=== PATIENT | female | born 1940 | race Caucasian/White ===

== ENCOUNTER 2018-03-02 17:46 | Inpatient (IN) | payer OTHER ==
[~2018-03-02] VITALS: Ht 170.2 cm; Wt 127.9 kg
--- NOTE | ~2018-03-02 | EKG ---
[place] [address] [address] [facility] [place] [address] ELECTROCARDIOGRAM REPORT Name: MANUELA BAH Room #: 404-P ADM IN .R.#: [id number] Admission: 03/02/18 Attend Phys: Lm Motley MD Discharge: Date of : 44 Report #: [id number] THIS REPORT FOR: //name// [facility] ED Test Date: 2018-03-02 Test Time: 19:08:17 Pat Name: MANUELA BIRCH Department: Room: Gender: F Palliative Care Specialist: yanci saldivar : 1940 Requested By: Tres Lal Order Number: [id number] MD: Edson Pulliam Measurements Intervals [place] Rate: 75 P: 0 DE: 53 QRS: 118 QRSD: 165 T: -45 QT: 508 QTc: 568 Interpretive Statements Atrial-ventricular dual-paced complexes No further analysis attempted due to paced rhythm No previous ECG available for comparison Electronically Signed On 03-03-2018 8:34:46 CDT by Edson Pulliam [email or web address] <ELECTRONICALLY SIGNED> By: Edson Pulliam MD, [facility] 03/03/18 0834 07 07 Edson Pulliam MD, [facility] /EPI
[2018-03-02 17:48] VITALS: BP 118/44
[2018-03-02] MEDS ORDERED: PROAIR RESPICL90 MCG (18:08)
[2018-03-02] MEDS ORDERED: XANAX1 MG (18:09)
[2018-03-02] MEDS ORDERED: AMIODARONE HCL100 MG PO (18:09)
[2018-03-02] MEDS ORDERED: ASPIR 8181 MG PO (18:10)
[2018-03-02] MEDS ORDERED: ELIQUIS5 MG PO (18:10)
[2018-03-02] MEDS ORDERED: EQUALACTIN PO (18:11)
[2018-03-02] MEDS ORDERED: LEXAPRO20 MG PO (18:12)
[2018-03-02] MEDS ORDERED: CARVEDILOL12.5 MG PO (18:12)
[2018-03-02] MEDS ORDERED: FLEXERIL PO (18:13)
[2018-03-02] MEDS ORDERED: FLONASE 0.05%50 MCG NASAL (18:13)
[2018-03-02 18:48] LABS: ABSOLUTE NEUTROPHILS 8.1 thou/uL (1.4-8.2); BASOPHILS 1.2 % (0.0-2.0); EOSINOPHILS 1.5 % (0.0-3.0); HEMATOCRIT 33.2 % (37.0-47.0); HEMOGLOBIN 10.8 gm/dL (12.0-15.0); MCH 27.8 pg (26.0-34.0); MCHC 32.7 g/dL (28.0-37.0); MONOCYTES 8.6 % (1.0-8.0); PLATELET COUNT 148 thou/uL (150-400); POLYS 78.7 % (36.0-66.0); RBC 3.91 mil/uL (4.20-5.00); RDW 15.6 % (10.5-14.5); WBC 10.3 thou/uL (4.0-11.0)
[2018-03-02] MEDS ORDERED: GLYBURIDE 2.52.5 M1 PO (18:50)
[2018-03-02] MEDS ORDERED: GLYBURIDE 2.52.5 MG PO (18:51)
[2018-03-02] MEDS ORDERED: SYNTHROID75 MCG PO (18:52)
[2018-03-02] MEDS ORDERED: LIPITOR10 MG PO (18:52)
[2018-03-02] MEDS ORDERED: LISINOPRIL2.5 M1 PO (18:53)
[2018-03-02] MEDS ORDERED: MAG GLYCINATE100 MG PO (18:53)
[2018-03-02] MEDS ORDERED: OMEPRAZOLE 20 M20 M1 PO (18:54)
[2018-03-02] MEDS ORDERED: METOLAZONE 2.52.5 M1 PO (18:54)
[2018-03-02 18:55] LABS: CREATININE 2.1 mg/dL (0.6-1.0); POTASSIUM 3.8 mmol/L (3.5-5.1)
[2018-03-02] MEDS ORDERED: K-DUR 20 MEQ T20 MEQ PO (18:55)
[2018-03-02] MEDS ORDERED: SENNA8.6 MG PO (18:56)
[2018-03-02] MEDS ORDERED: SLOW RELEASE I143 MG PO (18:57)
[2018-03-02] MEDS ORDERED: DEMADEX20 MG PO (18:57)
[2018-03-02] MEDS ORDERED: VITAMIN D3400 UNIT PO (18:58)
[2018-03-02] MEDS ORDERED: FLOMAX0.4 MG PO (18:58)
[2018-03-02] MEDS ORDERED: FLOVENT HFA 4444 MCG INH (18:59)
[2018-03-02] MEDS ORDERED: ATROVENT HFA14 GM INH (18:59)
[2018-03-02 19:05] LABS: APTT 24.4 Seconds (24.5-32.8); PROTIME 10.7 Seconds (9.3-11.4)
[2018-03-02 19:23] VITALS: BP 133/59
[2018-03-03] VITALS: BP 139/61
[2018-03-03 00:13] VITALS: BP 141/58
[2018-03-03 04:00] VITALS: BP 135/68
[2018-03-03 06:58] LABS: HEMATOCRIT 31.5 % (37.0-47.0); HEMOGLOBIN 10.3 gm/dL (12.0-15.0); MCH 27.6 pg (26.0-34.0); MCHC 32.7 g/dL (28.0-37.0); MCV 84.4 fL (80.0-100.0); RBC 3.73 mil/uL (4.20-5.00); RDW 15.2 % (10.5-14.5)
[2018-03-03 07:05] LABS: CALCIUM 8.7 mg/dL (8.5-10.1); CREATININE 1.7 mg/dL (0.6-1.0); POTASSIUM 3.8 mmol/L (3.5-5.1)
[2018-03-03 07:09] VITALS: BP 134/68
[2018-03-03 07:10] LABS: PROTIME 10.7 Seconds (9.3-11.4)
[2018-03-03 11:39] LABS: TSH 1.959 uIU/mL (0.358-3.740)
== END 2018-03-03 12:08 | disposition short-term general hospital (02) | DRG 535 ==
LOC: ER 17:46 → 4N 19:20 → EROBS 19:20 → 4N 20:30
PROVIDERS: Internal Medicine Geriatric Medicine; Nurse Practitioner Family; Physician Assistant
DX: S72.141A Displaced intertrochanteric fracture of right femur, initial encounter for closed fracture (principal); N17.0 Acute kidney failure with tubular necrosis; I13.0 Hypertensive heart and chronic kidney disease with heart failure and stage 1 through stage 4 chronic kidney disease, or unspecified chronic kidney disease; F17.210 Nicotine dependence, cigarettes, uncomplicated; N18.9 Chronic kidney disease, unspecified; I50.9 Heart failure, unspecified; E78.5 Hyperlipidemia, unspecified; I48.91 Unspecified atrial fibrillation; I35.0 Nonrheumatic aortic (valve) stenosis; E03.9 Hypothyroidism, unspecified; E11.22 Type 2 diabetes mellitus with diabetic chronic kidney disease; W01.0XXA Fall on same level from slipping, tripping and stumbling without subsequent striking against object, initial encounter; Y93.89 Activity, other specified; Y92.89 Other specified places as the place of occurrence of the external cause; Y99.8 Other external cause status; Z79.51 Long term (current) use of inhaled steroids; Z79.82 Long term (current) use of aspirin; Z95.0 Presence of cardiac pacemaker; Z79.899 Other long term (current) drug therapy; Z88.8 Allergy status to other drugs, medicaments and biological substances; Z91.041 Radiographic dye allergy status
CPT/HCPCS: 10790